=== PATIENT | male | born 1955 | race Caucasian/White ===

== ENCOUNTER 2021-02-12 09:00 | Outpatient (CLI) | payer OTHER | END 2021-02-12 09:15 | disposition home or self-care (01) | LOC: PPH VACUNA 09:00 | PROVIDERS: ATTEND Emergency Medicine Pediatric Emergency Medicine | DX: Z23 Encounter for immunization (principal) ==

== ENCOUNTER 2022-06-21 12:28 | Emergency (ER) | payer OTHER ==
[~2022-06-21] VITALS: Ht 175.3 cm; Wt 63.5 kg
[~2022-06-21 12:28] MED LIST: ALPHAGAN P5 M2; CILOSTAZOL100 MG PO; DORZOLAMIDE HCL10 ML; EFFIENT10 MG PO; GLUCOTROL10 MG PO; ISOSORBIDE MONO60 MG; LUMIGAN2.5 M1; NIFEDIPINE20 MG; NITROGLYCERIN0.4 MG; TOPROL XL100 M1
== END 2022-06-21 21:10 | disposition designated cancer center or children's hospital (05) ==
LOC: ER 12:28
DX: I60.8 Other nontraumatic subarachnoid hemorrhage (principal); W18.39XA Other fall on same level, initial encounter; Y93.89 Activity, other specified; Y92.012 Bathroom of single-family (private) house as the place of occurrence of the external cause; I25.2 Old myocardial infarction; I10 Essential (primary) hypertension; E11.9 Type 2 diabetes mellitus without complications; Z79.84 Long term (current) use of oral hypoglycemic drugs; Z20.822 Contact with and (suspected) exposure to COVID-19; N28.89 Other specified disorders of kidney and ureter; Z88.8 Allergy status to other drugs, medicaments and biological substances